=== PATIENT | male | born 1975 | race Caucasian/White ===

== ENCOUNTER 2018-09-11 10:50 | Day surgery (SDC) | payer OTHER ==
[~2018-09-11 10:50] MED LIST: LOSARTAN-HCTZ 100-25 PO
[2018-09-11 11:24] LABS: HEMATOCRIT 43.9 % (42.0-54.0); HEMOGLOBIN 15.6 g/dL (13.5-17.5); MCH 34.1 pg (26.0-34.0); MCHC 35.5 g/dL (31.0-37.0); MCV 95.9 fL (80.0-100.0); MEAN PLATELET VOLUME 10.4 fL (7.4-10.4); RBC 4.58 10x6/uL (4.20-6.10); RDW 12.5 % (11.5-14.5); WBC 6.2 10x3/uL (4.8-10.8)
[2018-09-11 11:28] LABS: CALC OSMOLALITY 280 mosm/kg (275-300); CALCIUM 9.3 mg/dL (8.5-10.1); CARBON DIOXIDE 31.5 mmol/L (21.0-32.0); CHLORIDE - SERUM 104 mmol/L (98-107); CREATININE - SERUM 0.8 mg/dL (0.6-1.3); GLUCOSE 102 mg/dL (74-106); POTASSIUM - SERUM 4.2 mmol/L (3.5-5.1); SODIUM 141 mmol/L (136-145); UREA NITROGEN 12 mg/dL (7-18); eGFR NON AFRICAN AMERICAN > 90 mL/min (90-120)
[2018-09-11 12:39] VITALS: BP 117/84; BMI 31.5
--- NOTE | 2018-09-11 18:54 | NUR ---
1841 - PT STATES"I NEED TO USE THE BATHROOM" BUT REFUSES URINAL
--- NOTE | 2018-09-11 20:45 | NUR ---
BLADDER SCANNED PT [address] GARBER PAGED.
--- NOTE | 2018-09-11 21:12 | NUR ---
2100 KIMBLE INSERTED PER ORDERS AND 500ML OF CLEAR YELLOW URINE RETURNED. INSTRUCTIONS GIVEN ABOUT CATH CARE. LEG BAG GIVEN TO PT WITH INSTRUCTIONS. AND FOR PT TO RETURN TO OFFICE TO HAVE KIMBLE REMOVED SUNDAY. IV REMOVED
--- NOTE | 2018-09-26 15:31 | OP ---
PATIENT NAME: JAMIA WATTS MEDICAL RECORD: [id number] :71 LOCATION:D.OPS ADMISSION DATE: SURGEON: FAMILIA GARBER MD DATE OF OPERATION: 09/11/2018 PREOPERATIVE DIAGNOSES: 1. Intractably symptomatic external hemorrhoids. 2. Internal hemorrhoidal bleeding. 3. 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 POSTOPERATIVE DIAGNOSES: 1. Intractably symptomatic external hemorrhoids. 2. Internal hemorrhoidal bleeding. 3. 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 PROCEDURE: Procedure for prolapse and hemorrhoids. SURGEON: Familia Garber MD EMAIL ADMINISTRATOR: None. BLOOD LOSS: Less than 25 cc. ANESTHESIA: General. OPERATIVE COURSE: The patient was conveyed to the operating room electively on 09/11/2018. General anesthesia was induced by the anesthesia staff. The patient was placed in the lithotomy position. The buttocks were taped laterally. The anus and perianal areas were sterilely prepped and draped. The anus was dilated laterally to 3 fingers. A PPH retractor was placed. The retractor was sutured to the surrounding anoderm with 2-0 silk sutures. A 2-0 Prolene mucosal pursestring suture was applied 1 cm cephalad to the clear retractor. The PPH stapling device was advanced with the anvil cephalad to the pursestring suture, which was then tightened and tied. The stapling device was engaged. It was held in place for 2 minutes. It was then fired. It was removed under direct vision. There was an entire donut of hemorrhoidal and lower rectal mucosal tissue within the stapling device. Bleeding along the anastomotic staple line was controlled with [id number] 3-0 Vicryls. A combination of Marcaine and a steroid preparation was used to infiltrate the perianal tissues. Gelfoam was applied within anus and lower rectum. A topical anesthetic cream was applied to the external hemorrhoids. The patient was then extubated and conveyed to postanesthesia care unit. TRANSINT:[id number] Voice Confirmation ID: [id number] DOCUMENT ID: [id number] FAMILIA GARBER MD at 1531 CC: [id number] DICTATION DATE: 09/26/18 1223 NEWSPAPER REPORTER: 09/26/18 1442 [facility] 09/11/18 [facility] [address] [id number]
== END 2018-09-11 21:24 | disposition home or self-care (01) ==
LOC: D.OPS 10:50 → D.PAN 11:45 → D.OPS 13:00
PROVIDERS: Anesthesiology; ATTEND Surgery
DX: K64.8 Other hemorrhoids (principal); K64.4 Residual hemorrhoidal skin tags; Z01.812 Encounter for preprocedural laboratory examination